=== PATIENT | male | born 1950 | race Hispanic/Latino ===

== ENCOUNTER → 2019-01-05 | Outpatient (CLI) | payer OTHER | END | disposition home or self-care (01) | LOC: OIH 14:11 | PROVIDERS: ATTEND Family Medicine | DX: Z13.6 Encounter for screening for cardiovascular disorders (principal) | CPT/HCPCS: 75571 ==

== ENCOUNTER → 2022-12-12 | Outpatient (CLI) | payer MEDICARE ==
[2022-12-12 12:15] LABS: CHOLESTEROL 138 mg/dL (<200); HDL CHOLESTEROL 50 mg/dL (29-71); LDL DIRECT 78 mg/dL (0-99); TRIGLYCERIDES 73 mg/dL (30-200)
== END | disposition home or self-care (01) ==
LOC: LAB 08:09
PROVIDERS: ATTEND Internal Medicine Cardiovascular Disease
DX: E78.5 Hyperlipidemia, unspecified (principal)
CPT/HCPCS: 36415; 80061

== ENCOUNTER 2023-07-05 08:52 | Day surgery (SDC) | payer MEDICARE ==
[2023-07-03 12:57] LABS: BASOPHILS # (AUTO) 0.07 K/uL (0.00-0.20); BASOPHILS % (AUTO) 0.9 % (0.0-5.0); EOSINOPHILS # (AUTO) 0.53 K/uL (0.00-0.70); EOSINOPHILS % (AUTO) 7.2 % (0.0-8.0); HEMATOCRIT 40.4 % (42-54); IMMATURE GRANULOCYTE ABSOLUTE 0.02 K/uL (0-1); LYMPHOCYTES # (AUTO) 2.5 K/uL (1.0-4.8); LYMPHOCYTES % (AUTO) 34.1 % (21.0-51.0); MEAN CORPUSCULAR HEMOGLOBIN 35.7 pg (27.0-33.0); MEAN CORPUSCULAR HGB CONC 34.7 g/dL (32.0-36.0); MEAN CORPUSCULAR VOLUME 103.1 fL (79-99); MONOCYTES # (AUTO) 0.4 K/uL (0.1-1.0); MONOCYTES % (AUTO) 5.4 % (3.0-13.0); NEUTROPHILS # (AUTO) 3.8 K/uL (1.8-7.7); NEUTROPHILS % (AUTO) 52.1 % (40.0-77.0); PLATELET COUNT (AUTO) 198 K/uL (130-400); RED BLOOD CELL COUNT(AUTO) 3.92 MIL/uL (4.50-6.20); RED CELL DISTRIBUTION WIDTH 11.6 % (11.0-15.5); WHITE BLOOD COUNT (AUTO) 7.4 K/uL (4.8-10.8)
[2023-07-03 13:00] VITALS: BP 136/70; PULSE 60; RESP 16
[2023-07-03 13:02] LABS: CREATININE 0.9 mg/dL (0.5-1.5); POTASSIUM 4.5 mmol/L (3.5-5.1)
[2023-07-05] VITALS (12 sets, daily range): BP systolic 95–127; BP diastolic 55–79; PULSE 53–66; RESP 13–17
[~2023-07-05] VITALS: Ht 172.7 cm; Wt 76.9 kg
[~2023-07-05 08:52] MED LIST: AEC81 PO; ASCO500T19 PO; BUPR-49 PO; CYAN1TAB48 PO; ERGO500093 PO; FISH OIL PO; GARL1000 PO; GLUC-252 PO; SILO8CAP6 PO; VITA100T9 PO
[2023-07-05] MEDS ORDERED: LACTATED RINGERS 1000ML 1,000 ML IV ONE (09:56)
[2023-07-05] MEDS ORDERED: CEFTRIAXONE 1G VIAL ONE (09:56)
[2023-07-05] MEDS ORDERED: AUGMENTIN PO (10:09)
[2023-07-05] MEDS ORDERED: MIDAZOLAM HCL 1 MG/ML 2ML VIAL ONE (11:15)
[2023-07-05] MEDS ORDERED: PROPOFOL 10 MG/ML 20ML VIAL IV ONE (11:16)
[2023-07-05] MEDS ORDERED: FENTANYL CITRATE PF 50 MCG/1 ML 5ML AMP IV ONE (11:16)
[2023-07-05] MEDS ORDERED: ONDANSETRON 4MG INJ ONE (11:17)
[2023-07-05] MEDS ORDERED: CEFAZOLIN SODIUM 2 GM VIAL IVPB ONE (12:07)
[2023-07-05] MEDS ORDERED: LIDOCAINE HCL 2% PF 20 ML JEL DISP.SYRIN MM ONE (12:13)
== END 2023-07-05 14:30 | disposition home or self-care (01) ==
LOC: DAH 08:52
PROVIDERS: ATTEND Urology
DX: N40.3 Nodular prostate with lower urinary tract symptoms (principal); N41.1 Chronic prostatitis; K21.9 Gastro-esophageal reflux disease without esophagitis; Z79.899 Other long term (current) drug therapy; Z90.49 Acquired absence of other specified parts of digestive tract; Z98.890 Other specified postprocedural states; Z87.891 Personal history of nicotine dependence; Z79.82 Long term (current) use of aspirin; Z79.01 Long term (current) use of anticoagulants
CPT/HCPCS: 80048; 85025; 36415; 55700; 88305; 76872; 76942; A6260; A4663; J7120 ×2; J3010; J0696; J2250; J2704; J2405; J0690; A4215 ×2; A4649; A4223; A4222; A4221; J3490